=== PATIENT | male | born 1995 | race Caucasian/White ===

== ENCOUNTER 2016-10-06 22:23 | Emergency (ER) | payer OTHER ==
[2016-10-07] MEDS ORDERED: ceFAZolin 1 GM in Dextrose (*) 1 GM/50 ML BAG IVPB ONE (01:27)
[2016-10-07] MEDS ORDERED: HYDROmorphone* 1 MG/ML 1 ML SYR IV ONE (01:29)
[2016-10-07] MEDS ORDERED: Ondansetron INJ* 2 MG/ML VIAL IV ONE (01:29)
[2016-10-07 02:02] LABS: Hematocrit 43 % (42-52); Hemoglobin 14.4 g/dl (14.0-18.0); Mean Corpuscular HGB Conc 33 g/dl (31-36); Mean Corpuscular Hemoglobin 31 pg (27-31); Mean Corpuscular Volume 92 fL (80-94); Mean Platelet Volume 8 um3 (7.4-10.4); Red Blood Count 4.68 10^6/ul (4.0-5.4); Red Cell Distribution Width 13 % (10.5-15); White Blood Count 7.5 10^3/ul (3.5-10.8)
[2016-10-07 02:14] LABS: Albumin 4.6 g/dL (3.2-5.2); BUN/Creatinine Ratio 15.1 (8-20); Calcium 9.5 mg/dL (8.6-10.3); EGFR African American 113.4 (>60); EGFR Non-African American 88.2 (>60); Globulin 2.9 g/dL (2-4); Potassium 3.5 mmol/L (3.5-5.0); Total Bilirubin 0.8 mg/dL (0.2-1.0); Total Protein 7.5 g/dL (6.4-8.9)
--- NOTE | 2016-10-07 06:19 | ED ---
Natalie, DoctorRosaura, scribed for Jana Guzman MD on 10/07/16 at 0617 . Upper Extremity Pain - HPI Summary HPI Summary: 21 year old male arrived to [facility] c/o finger injury to the left pinky at 23:00 yesterday. He reports pain and blood in the left pinky, but no other symptoms. He sustained the injury while playing volleyball, and believes to have suffered a compound fracture. He is a student at [employer], no other relevant PMHx. - History of Current Complaint Chief Complaint: EDExtremityUpper Stated Complaint: HAND/FINGER INJURY Time Seen by Provider: 10/07/16 00:58 Hx Obtained From: Patient Mechanism Of Injury: Blunt Trauma - volleyball injury Onset/Duration: Started Hours Ago, Still Present Timing: Lasting Hours Severity Initially: Moderate Severity Currently: Moderate Pain Location: Finger - left pinky - Allergies/Home Medications Allergies/Adverse Reactions: Allergies Allergy/AdvReac Type Severity Reaction Status Date / Time No Known Allergies Allergy Verified 10/06/16 23:35 PMH/Surg Hx/FS Hx/Imm Hx Endocrine/Hematology History: Denies: Hx Diabetes Cardiovascular History: Denies: Hx Coronary Artery Disease - Immunization History Date of Tetanus Vaccine: utd Date of Influenza Vaccine: unk Infectious Disease History: No Infectious Disease History: Denies: Traveled Outside the [place] in Last 30 Days - Family History Known Family History: Negative: Hypertension, Diabetes - Social History Occupation: Student Alcohol Use: Occasionally Substance Use Type: Reports: Marijuana Substance Use Comment - Amount & Last Used: rarely Smoking Status (MU): Never Smoked Tobacco Review of Systems Negative: Fever Positive: Other - pain in left pinky All Other Systems Reviewed And Are Negative: Yes Physical Exam Triage Information Reviewed: Yes Vital Signs On Initial Exam: Initial Vitals Temp Pulse Resp BP Pulse Ox 99.6 F 55 18 137/64 100 10/06/16 23:33 10/06/16 23:33 10/06/16 23:33 10/06/16 23:33 10/06/16 23:33 Vital Signs Reviewed: Yes Appearance: Positive: Well-Appearing, No Pain Distress Skin: Positive: Warm, Skin Color Reflects Adequate Perfusion, Dry Eyes: Positive: EOMI, YASIR ENT: Positive: Pharynx normal, TMs normal Neck: Positive: Supple, Nontender Respiratory/Lung Sounds: Positive: Clear to Auscultation, Breath Sounds Present. Negative: Rales, Rhonchi, Wheezes Cardiovascular: Positive: RRR. Negative: Murmur, Rub Abdomen Description: Positive: Nontender, Soft Bowel Sounds: Positive: Present Musculoskeletal: Positive: Strength/ROM Intact, Other - injury to left pinky. Negative: Edema Left, Edema Right Neurological: Positive: Sensory/Motor Intact, Alert, Oriented to Person Place, Time, CN Intact II-III Psychiatric: Positive: Affect/Mood Appropriate - Paramjit Coma Scale Coma Scale Total: 15 Procedures - Procedure Summary Procedure Summary: 1) digital block with reduction of open fracture dislocation 2) laceration re- anesthesized and 500 cc of NS irrigation into laceration 3) suture of laceration 3 cm over medial prox phalanx 3 sutures of 4-0- non absorbables - Joint Reduction Joint Reduction Site: other Specify Other Joint Reduced: left small finger Conscious Sedation: No Reduction Attempts: 1 Pre-Procedure NV Exam: Yes Post Joint Reduction Film: joint reduced Diagnostics - Vital Signs Vital Signs Temp Pulse Resp BP Pulse Ox 10/07/16 02:02 16 10/06/16 23:33 99.6 F 55 18 137/64 100 - Laboratory Lab Results: Lab Results 10/07/16 10/07/16 Range/Units 01:50 01:50 WBC 7.5 (3.5-10.8) 10^3/ul RBC 4.68 (4.0-5.4) 10^6/ul Hgb 14.4 (14.0-18.0) g/dl Hct 43 (42-52) % MCV 92 (80-94) fL MCH 31 (27-31) pg MCHC 33 (31-36) g/dl RDW 13 (10.5-15) % Plt Count 215 (150-450) 10^3/ul MPV 8 (7.4-10.4) um3 Neut % (Auto) 71.7 (38-83) % Lymph % (Auto) 20.3 L (25-47) % Holt % (Auto) 6.0 (1-9) % Eos % (Auto) 1.6 (0-6) % Baso % (Auto) 0.4 (0-2) % Absolute Neuts (auto) 5.3 (1.5-7.7) 10^3/ul Absolute Lymphs (auto) 1.5 (1.0-4.8) 10^3/ul Absolute Monos (auto) 0.5 (0-0.8) 10^3/ul Absolute Eos (auto) 0.1 (0-0.6) 10^3/ul Absolute Basos (auto) 0 (0-0.2) 10^3/ul Absolute Nucleated RBC 0.01 10^3/ul Nucleated RBC % 0.1 Sodium 137 (133-145) mmol/L Potassium 3.5 (3.5-5.0) mmol/L Chloride 103 (101-111) mmol/L Carbon Dioxide 26 (22-32) mmol/L Anion Gap 8 (2-11) mmol/L BUN 16 (6-24) mg/dL Creatinine 1.06 (0.67-1.17) mg/dL Est GFR ( Amer) 113.4 (>60) Est GFR (Non-Af Amer) 88.2 (>60) BUN/Creatinine Ratio 15.1 (8-20) Glucose 100 (70-100) mg/dL Calcium 9.5 (8.6-10.3) mg/dL Total Bilirubin 0.80 (0.2-1.0) mg/dL AST 22 (13-39) U/L ALT 14 (7-52) U/L Alkaline Phosphatase 61 (34-104) U/L Total Protein 7.5 (6.4-8.9) g/dL Albumin 4.6 (3.2-5.2) g/dL Globulin 2.9 (2-4) g/dL Albumin/Globulin Ratio 1.6 (1-3) Result Diagrams: 10/07/16 01:50 10/07/16 01:50 Lab Statement: Any lab studies that have been ordered have been reviewed, and results considered in the medical decision making process. - Radiology No standard instances Xray Interpretation: Positive (See Comments) - fracture of middle phalanx with pip dislocation Radiology Interpretation Completed By: ED Physician - Additional Comments Diagnostic Additional Comments: two additional xrays show fracture of middle phalanx with good reduction of dislocation Course/Dx - Course Course Of Treatment: 21 yo sustained open fracture dislocation to left small finger now s/p reduction, wash out with 500 cc of NS and repair of laceration. Case discussed with Dr. Chong for plan, pt received 1gram ancef here, his tetanus is up to date. finger neuro vascularly intact. Pain meds and keflex sent to [facility]. Finger splinted f/u with [facility] on Monday - Diagnoses Provider Diagnoses: Open fracture dislocation of finger - Physician Notifications Discussed Care Of Patient With: 04:29 - Discussed pt care with Dr. Chong ( Orthopedist). Discharge - Discharge Plan Condition: Stable Disposition: HOME Prescriptions: Cephalexin CAP* [Keflex CAP*] 500 mg PO QID #28 cap HYDROcodone/ACETAMIN 5-325 MG* [Milo 5-325 TAB*] 1 tab PO Q8H PRN #10 tab MDD 3 PRN Reason: Pain Referrals: [facility] JOSÉ LUIS Mayo [Primary Care Provider] - The documentation as recorded by the Doctor pena Tahera accurately reflects the service I personally performed and the decisions made by me, Jana Guzman MD.
[2016-10-07 07:23] VITALS: BP 129/76
--- NOTE | 2016-10-07 07:57 | RAD ---
INDICATION: Dislocation deformity of the left small finger playing volleyball TECHNIQUE: 3 views of the left small finger were obtained. FINDINGS: There is dislocation of the left small finger proximal interphalangeal joint with the middle phalanx displaced laterally and posteriorly relative to the proximal phalanx. No definite fracture is identified on these images. Remaining visualized bones are intact. IMPRESSION: LATERAL AND DORSAL DISPLACEMENT OF THE LEFT SMALL FINGER MIDDLE PHALANX RELATIVE TO THE PROXIMAL PHALANX.
--- NOTE | 2016-10-07 07:58 | RAD ---
INDICATION: Status post reduction of displaced left small finger proximal interphalangeal joint. TECHNIQUE: 3 views of the left small finger were obtained. FINDINGS: There has been interval realignment of the displaced left small finger proximal interphalangeal joint. No definite fracture is identified. Remaining visualized bones of the left hand are intact. IMPRESSION: INTERVAL REDUCTION OF DISPLACED LEFT SMALL FINGER PROXIMAL INTERPHALANGEAL JOINT WITH SURROUNDING SOFT TISSUE SWELLING.
--- NOTE | 2016-10-07 08:02 | RAD ---
INDICATION: Status post reduction of dislocated left small finger proximal interphalangeal joint. TECHNIQUE: 3 views of the left small finger were obtained. FINDINGS: The visualized bones are properly aligned. On the lateral view there is a cortical lucency at the proximal palmar aspect of the left small finger middle phalanx. The remaining bones are intact and appropriately aligned. IMPRESSION: NONDISPLACED FRACTURE AT THE PALMAR DORSAL ASPECT OF THE LEFT SMALL FINGER MIDDLE PHALANX.
== END 2016-10-07 07:21 | disposition home or self-care (01) ==
LOC: ED 22:23
DX: S62.607B Fracture of unspecified phalanx of left little finger, initial encounter for open fracture (principal); X58.XXXA Exposure to other specified factors, initial encounter; Y93.68 Activity, volleyball (beach) (court); Y92.9 Unspecified place or not applicable
CPT/HCPCS: 12002; 26770; 36415; 73140; 80053; 85025; 96374; 96375; 96376; 99283; J0690; J1170; J2405

== ENCOUNTER → 2016-10-21 11:45 | Day surgery (SDC) | payer OTHER ==
[~2016-10-21 11:45] MED LIST: Buffered Lidocaine 1% SYRIN* 3 ML/SYR SYRINGE INTRADERM ONE; Bupivacaine 0.5% SDV PF* 30 ML VIAL ONE; Dexamethasone IV* 4 MG/ML 1 ML (4 MG) IV SLOW PU ONE; Dexamethasone IV* 4 MG/ML 1 ML (4 MG) ONE; Famotidine IV* 10 MG/ML 2 ML (20 mg) IV ONE; Famotidine IV* 10 MG/ML 2 ML (20 mg) ONE; Lidocaine 2% PF* 5 ML VIAL ONE; Midazolam* 1 MG/ML 5 ML VIAL (5 MG) ONE; Ondansetron INJ* 2 MG/ML VIAL ONE; PROCHLORPERAZINE INJ 5 MG/ML 2 ML VIAL IV PRN; PROCHLORPERAZINE INJ 5 MG/ML 2 ML VIAL ONE; Propofol* 10 MG/ML 20 ML BTL IV PUSH ONE; ceFAZolin 2 GM PREMIX(*) 2 GM/50 ML BAG IVPB ONE; fentaNYL* 50 MCG/ML 2 ML VIAL (100 MCG VIAL) IV PRN; fentaNYL* 50 MCG/ML 2 ML VIAL (100 MCG VIAL) ONE; oxyCODONE/Acetamin 5/325 MG* TAB PO PRN
[2016-10-21 19:13] VITALS: BP 121/71
--- NOTE | 2016-10-21 20:43 | RAD ---
INDICATION: M 79.645, left small finger ORIF COMPARISONS: October 12, 2016 TECHNIQUE: Fluoroscopy was provided for a surgical procedure. Total fluoroscopy time is: 1 minute, 33 seconds FINDINGS: Spot images of the straight internal fixation of the middle phalanx of the fifth digit IMPRESSION: FLUOROSCOPY WAS PROVIDED FOR A SURGICAL PROCEDURE CPT II Codes: 6045F
--- NOTE | 2016-10-22 16:52 | OP ---
DATE OF OPERATION: 10/21/16 [facility] DATE OF : 89 SURGEON: Shashi Chong MD. FORK LIFT MECHANIC: TALISHA Paz. ANESTHESIOLOGIST: Dr. Naga Hurtado. ANESTHESIA: General. PRE-OP DIAGNOSES: 1. Left open small finger proximal interphalangeal joint fracture dislocation with impaction of the majority of the ulnar middle phalanx base. 2. Neurapraxic injury, traction injury, left small finger radial digital nerve. POST-OP DIAGNOSES: 1. Left open small finger proximal interphalangeal joint fracture dislocation with impaction of the majority of the ulnar middle phalanx base. 2. Neurapraxic injury, traction injury, left small finger radial digital nerve. OPERATIVE PROCEDURES: 1. Irrigation and debridement of left small finger proximal interphalangeal joint, open fracture dislocation with debridement of skin, subcutaneous tissue and fascia. 2. Open reduction and internal fixation, left small finger middle phalanx base impacted articular fracture with cancellous allograft. 3. Exploration of left small finger radial digital nerve. INDICATIONS: Rich is a 21-year-old who had the open fracture dislocation roughly a week ago when he was playing volleyball. He went to the ER where they rinsed with some water and reduced the joint, closed the wound and he followed up with me. He had a traction injury with some numbness on the radial aspect of the tip of the small finger. He ended up getting an x-ray and a CT scan showing about 2-3 mm of impaction of about 60-80% of the entire ulnar aspect of the middle phalanx base. We had talked about risks and benefits. I did consult with a couple of additional hand surgeons with regards to the optimal treatment of this with closed treatment versus open treatment. Collectively, we all decided that given the significant angular instability that likely is inherent with the impaction of the majority of the ulnar side of the articular surface that the fracture would be best treated with open reduction and internal fixation, disimpacting the ulnar joint. I also told him that I would explore the radial digital nerve and make sure that it was in continuity. He certainly understands there is a significant risk of stiffness associated with this operation. There is also risk of infection, hardware failure, instability. ESTIMATED BLOOD LOSS: 10 mL. COMPLICATIONS: None. FINDINGS: The large area of impaction in the ulnar aspect of the middle phalanx base was noted. The radial digital nerve was found to indeed be in continuity without any obvious area of neuroma. The radial digital artery was likewise in continuity. DESCRIPTION OF PROCEDURE: Rich was seen in the preoperative holding area. The correct side and site and procedure were identified. He was brought back to the operating room and anesthesia was induced. The arm was prescrubbed and then again prepped and draped using a Betadine scrub in as standard fashion. A formal time- out was performed. I went ahead and exsanguinated the left upper extremity and inflated the tourniquet to 250 mmHg. I then mapped out a mid-axial incision traversing the proximal and portion of the middle phalanx utilizing and incorporating the traumatic wound. I did excise 0.5 mm of skin on either side of the traumatic wound to take it back to a clean healthy skin edge. A full thickness flap was raised right off of the tendon sheath. The radial digital nerve was identified. I went ahead and dissected it out just to make sure that was in continuity and there were no significant signs of repairable injury. It did indeed look like it was in continuity and so, I went ahead and continued on with the procedure. I identified the A2 and A4 pulleys. I then raised an ulnarly based flap of the A3 fabian, and with the cruciate pulleys. This was reflected ulnarly. I then passed a vessel loop around the flexor tendons. It was noted that the volar plate was cleanly detached from the base of the middle phalanx in its entirety. The radial collateral ligament was noted to be completely avulsed off of its origin at the collateral recess of the proximal phalanx head. I went ahead and released the little bit of the collateral ligament off of the middle phalanx on the ulnar aspect. At this point, I went ahead and let the tendons subluxate ulnarly which is the direction they wanted to go and I went ahead and shotgun opened the proximal interphalangeal joint taking care to make sure there was no significant traction injury to the neurovascular bundle. With the joint exposed, the area of impaction ulnarly was readily visible. I had to take the Galena blade to disimpact the fragments ulnarly. Once I got started with the Galena blade, I brought in the Christina osteotome and used this to continue disimpacting the fragments. They were very solidly impacted and this took quite a bit of work to achieve this. Ultimately, we were able to fully mobilize the fragments until they were completely loose and disimpacted. At this point, we brought in some cancellous autograft chips, we had crushed down in a tiny little fragments and placed them underneath the disimpacted articular pieces. I then placed a 10 mm 1.0 Synthes modular handset screw from volar to dorsal in lag tight fashion to achieve compression across all the fragments. I then went ahead and used an 18-gauge needle to pass a 26-gauge cerclage wire completely around the base of the middle phalanx. This was tightened radially. The first wire that I placed was a bit too distal and so I had to take down one off and replace it and the second wire was very nice fit and very appropriately placed on the bone and achieved quite a bit of nice compression across the fracture fragments. The 1.0 mm screw was doing an excellent job rafting the fragments. We went ahead and reduced the joint and checked the fluoroscopy. Unfortunately, the screw was just a touch long and so we dislocated the joint and backed up the 10 mm screw and placed an 8 mm screw. Fluoroscopic images under live fluoroscopy was used to check to make sure that the screw was just the right length. It just exited out the dorsal ulnar cortex on the oblique view. I was very satisfied with that. At this point, we had already reduced the joint again. We went ahead and irrigated the wound out copiously. The volar plate was then repaired back to the collateral ligaments radially and ulnarly. There was absolutely no soft tissue on the volar lip of the middle phalanx base to repair the volar plate there too, so it was just approximated using the repair to the collateral ligaments. It ultimately closed down over the joint very nicely. I attempted to reduce and repair the tendon sheath flap, however, with that being so thin, it was just very difficult to get a good reapproximation and ultimately it look like it will do more harm than good. So, we simply went ahead and excised the flexor tendon sheath flap that we had raised. The wound was again copiously irrigated. At this point, we were a little over 2 hours on the tourniquet, so I went ahead and let down the tourniquet. Finger pinked up immediately. We had checked fluoroscopic imaging and had excellent complete congruency and anatomic reduction of the joint on the AP, lateral and oblique views. We went ahead and closed the skin with some 5-0 nylon simple interrupted sutures taking care not to grab the neurovascular bundle. The wound was then dressed with Xeroform, 1-inch Lew, a dorsal AlumaFoam splint with the MP joint in flexion and the PIP joint in gentle flexion and this was Coban'd on in place. He was then woken up and taken to the recovery room in stable condition. Please note that prior to making skin incision, I did anesthetize the finger with 0.5% Marcaine digital block. [id number]/[facility] #: [id number] CARLOS MANUEL
== END | disposition home or self-care (01) ==
LOC: OR 11:45
PROVIDERS: ATTEND Orthopaedic Surgery Hand Surgery
DX: S62.627B Displaced fracture of middle phalanx of left little finger, initial encounter for open fracture (principal); S64.497A Injury of digital nerve of left little finger, initial encounter; W21.06XA Struck by volleyball, initial encounter; Y93.68 Activity, volleyball (beach) (court); Y92.328 Other athletic field as the place of occurrence of the external cause
CPT/HCPCS: 76001; C1713; C1776; J0690; J0780; J1100; J2250; J2405; J2704; J3010